=== PATIENT | female | born 1955 | race African-American/Black ===

== ENCOUNTER → 2016-10-31 | Outpatient (CLI) | payer BC ==
--- NOTE | 2016-10-31 17:24 | PCVCIMAG ---
APPROVED REPORT Study performed: 10/31/2016 14:51:36 EXAM: Comprehensive 2D, Doppler, and color-flow Echocardiogram Status: routine Other Information Study Quality: Adequate Indications Enlarged Thoracic Aorta, HLP 2D Dimensions LVEF(%): 55.00 (>50%) IVSd: 9.00 (7-11mm) PWd: 9.00 (7-11mm)Ascending Ao: 38.00 (22-36mm) LVDs: 30.00 (25-40mm) Left Atrium: 28.00 (27-40mm) Aortic Root: 31.00 mm Biplane EF: 55.0 % Volumes Left Atrial Volume (Systole) LA ESV Index: 32.00 mL/m2 Aortic Valve AoV Peak Dorian.: 1.40 m/s LVOT Max V: 0.90 m/s Mitral Valve E/A Ratio: 0.9 MV E Max Dorian.: 0.80 m/s MV A Dorian.: 0.90 m/s IVRT: 107.00 ms TDI E/Lateral E': 7.20E/Medial E': 11.70 Pulmonary Valve PV Peak Dorian.: 0.80 m/s Tricuspid Valve TR Peak Dorian.: 230.00 m/s TV Vmax: 2.30 m/sPA Pressure: 28.00 mmHg Left Ventricle The left ventricle is normal size. There is normal LV segmental wall motion. There is normal left ventricular wall thickness. Left ventricular systolic function is normal. The left ventricular ejection fraction is within the normal range. LVEF is 60-65%. Grade I - abnormal relaxation pattern. Right Ventricle The right ventricle is normal size. The right ventricular systolic function is normal. Atria The left atrium size is normal. The right atrium size is normal. Aortic Valve The aortic valve is mildly calcified and trileaflet Mild aortic regurgitation. There is no aortic valvular stenosis. Mitral Valve The mitral valve is normal in structure. Trace mitral regurgitation. No evidence of mitral valve stenosis. Tricuspid Valve The tricuspid valve is normal in structure. Mild tricuspid valve regurgitation noted with PAP of 28 mmHg. Pulmonic Valve The pulmonary valve is normal in structure. There is no pulmonic valvular regurgitation. Great Vessels The aortic root is normal in size. The ascending aorta is mildly dilated to 3.8 cm. IVC is normal in size and collapses with >50% inspiration Pericardium There is no pericardial effusion. <Conclusion> The left ventricular ejection fraction is within the normal range. LVEF 60-65%. Normal LV segmental wall motion. Grade I diastolic dysfunction The aortic valve is mildly calcified and trileaflet, no aortic stenosis, mild insufficiency. The mitral valve is normal in structure. No stenosis or insufficiency The aortic root is normal in size. The ascending aorta is mildly dilated to 3.8 cm. Pulmonary artery pressure 28mmHg There is no pericardial effusion.
== END | disposition home or self-care (01) ==
LOC: PCVCIMAG 14:36
PROVIDERS: ATTEND Internal Medicine
DX: I08.3 Combined rheumatic disorders of mitral, aortic and tricuspid valves (principal); E78.5 Hyperlipidemia, unspecified; I71.2 Thoracic aortic aneurysm, without rupture
CPT/HCPCS: 93306